=== PATIENT | female | born 1985 | race Caucasian/White ===

== ENCOUNTER 2018-12-11 11:15 | Emergency (ER) | payer OTHER, SELFPAY ==
[2018-12-11 11:15] VITALS: BP 106/48; PULSE 78; RESP 15; TEMP 36.7; O2SAT 100; BMI 23.6
--- NOTE | 2018-12-11 11:21 | ED.PREGNANCY ---
HPI - <Jenise Waters PA-C - Last Filed: 12/11/18 20:42> General Chief complaint: Vaginal Bleeding Stated complaint: 11 weeks ,bleeding Time Seen by Provider: 12/11/18 11:16 Source: patient Limitations: no limitations History of Present Illness HPI Narrative: This 33-year-old female comes to ED secondary to concern for miscarriage. She is 11 weeks , . She states that had been progressing as expected. She had some minor spotting and cramping on Wednesday which she did not think was abnormal, however she worked last night and this morning a couple of hours ago noted that blood was running down her leg. She states that she is really not having any pelvic cramping or pain at this point, minimal discomfort. She does not have any nausea or vomiting. She has not had any fever, chills, sweats. She denies any urinary symptoms. She denies chest pain, dyspnea, swelling or pain in the extremities. Date of Last Menstrual Period: 10/07/18 Patient : Yes Related Data Home Medications Medication Instructions Recorded Confirmed calcium carb-Ca gluc 500 mg tab PO tab 12/06/18 12/06/18 calcium-magnesium ox-Mg gluc 250 mg tablet cholecalciferol (vitamin D3) 2,000 2,000 unit PO DAILY 12/06/18 12/06/18 unit capsule ferrous sulfate 325 mg (65 mg 325 mg PO DAILY tab 12/06/18 12/06/18 iron) tablet 1 tab PO DAILY 12/06/18 12/06/18 vitamin,calcium,hxaqiwfu-itme-htxhx acid tablet Allergies Allergy/AdvReac Type Severity Reaction Status Date / Time hydrocodone AdvReac Mild Hives Verified 12/06/18 14:36 Review of Systems <Jenise Waters PA-C - Last Filed: 12/11/18 20:42> Review of Systems ROS Unobtainable: All systems reviewed & are unremarkable except as noted in HPI and below PMFSH - <Jenise Waters PA-C - Last Filed: 12/11/18 20:42> Past Medical History Iron deficiency anemia Surgical history: Reports AGENCY DIRECTOR history: Reports No AGENCY DIRECTOR History Date of Last Menstrual Period: 10/07/18 Patient : Yes Family history: Reports no significant family history Exam <Jenise Waters PA-C - Last Filed: 12/11/18 20:42> Narrative Exam Narrative: GENERAL APPEARANCE: Patient sitting comfortably, in no distress. HEENT: PERRL, EOMI, conjunctiva pink NECK: Supple, no masses LUNGS: Clear to auscultation bilaterally. HEART: Rate and rhythm regular, normal S1 and S2, no S3 or S4. ABDOMEN: Soft, nontender, nondistended, bowel sounds present x 4 quadrants, no masses palpable, no CVAT EXTREMITIES: No edema NEUROLOGIC: Alert and oriented with normal speech and coordination Initial Vital Signs Initial Vital Signs: Vital Signs Temperature 98.1 F 12/11/18 11:15 Pulse Rate 78 12/11/18 11:15 Respiratory Rate 15 12/11/18 11:15 Blood Pressure 106/48 L 12/11/18 11:15 Pulse Oximetry 100 12/11/18 11:15 <Lore Granados DO - Last Filed: 12/15/18 07:45> Initial Vital Signs Initial Vital Signs: Vital Signs Temperature 98.1 F 12/11/18 11:15 Pulse Rate 78 12/11/18 11:15 Respiratory Rate 15 12/11/18 11:15 Blood Pressure 106/48 L 12/11/18 11:15 Pulse Oximetry 100 12/11/18 11:15 Course <HANK Esteves Last Filed: 12/11/18 20:42> Additional Information: I spoke with Dr. Roman, conservation of resources commissioner for AGENCY DIRECTOR, and reviewed lab and ultrasound findings. She advised that patient can follow up as outpatient if she does not desire D&C. Patient elects to let miscarriage continue to proceed naturally and will call office 1st thing in the morning to schedule follow-up. She agrees return term if any acutely worsening symptoms Orders Ordered: ED Orders 12/11/18 11:40 US OB <= 14 weeks fetus Stat 12/11/18 11:55 ABO RH Type Stat Complete Blood Count AUTO DIFF Stat Comprehensive Metabolic Panel Stat HCG Quantitative Stat Vital Signs - 8 hr 12/11/18 13:33 Pulse Rate 81 Respiratory Rate 15 Blood Pressure 112/75 Pulse Oximetry 100 <Lore Granados DO - Last Filed: 12/15/18 07:45> Orders Ordered: ED Orders 12/11/18 11:40 US OB <= 14 weeks fetus Stat 12/11/18 11:55 ABO RH Type Stat Complete Blood Count AUTO DIFF Stat Comprehensive Metabolic Panel Stat HCG Quantitative Stat Vital Signs - 8 hr 12/11/18 13:33 Pulse Rate 81 Respiratory Rate 15 Blood Pressure 112/75 Pulse Oximetry 100 MDM - OB/Uterine Contractions <Jenise Waters PA-C - Last Filed: 12/11/18 20:42> Lab Data Attestation: I reviewed the patient's lab results. Result diagrams: 12/11/18 11:55 12/11/18 11:55 Lab Results 12/11/18 12/11/18 12/11/18 Range/Units 11:55 11:55 11:55 WBC 7.2 (4.5-11.0) X10^3/uL RBC 4.21 (4.0-5.2) X10^6/uL Hgb 12.5 (12.0-16.0) g/dL Hct 36.6 (36-46) % MCV 86.8 (80-100) fL MCH 29.8 (26-34) PG MCHC 34.3 (30-36) % RDW 14.1 (11.6-14.8) % Plt Count 226 (150-400) X10^3/uL Neut % (Auto) 71.9 (50-75) % Lymph % (Auto) 21.3 L (25-40) % [place] % (Auto) 4.8 (3-14) % Eos % (Auto) 1.3 L (2-4) % Baso % (Auto) 0.7 (0-2) % Neut # (Auto) 5200 (7342-6380) /uL Lymph # (Auto) 1500 (6968-4683) /uL [place] # (Auto) 300 (0-900) /uL Eos # (Auto) 100 (0-450) /uL Baso # (Auto) 0 (0-100) /uL Sodium 137 (137-145) mmol/L Potassium 3.8 (3.4-5.1) mmol/L Chloride 103 (98-107) mmol/L Carbon Dioxide 24 (22-32) mmol/L BUN 9 (7-17) mg/dL Creatinine 0.40 L (0.52-1.04) mg/dL Estimated GFR > 60.0 (>60) mL/min BUN/Creatinine Ratio 22.5 H (6-22) Glucose 96 (70-100) mg/dL Calcium 9.4 (8.4-10.2) mg/dL Total Bilirubin 0.4 (0.2-1.3) mg/dL AST 18 (14-36) IU/L ALT 11 (9-52) IU/L Alkaline Phosphatase 70 (38-126) U/L Total Protein 7.9 (6.3-8.2) g/dL Albumin 4.4 (3.5-5.0) g/dL Globulin 3.5 (1.7-4.1) g/dL Albumin/Globulin Ratio 1.3 (1.0-2.8) HCG, Quant 07578 mIU/mL Blood Type 12/11/18 Range/Units 11:55 WBC (4.5-11.0) X10^3/uL RBC (4.0-5.2) X10^6/uL Hgb (12.0-16.0) g/dL Hct (36-46) % MCV (80-100) fL MCH (26-34) PG MCHC (30-36) % RDW (11.6-14.8) % Plt Count (150-400) X10^3/uL Neut % (Auto) (50-75) % Lymph % (Auto) (25-40) % [place] % (Auto) (3-14) % Eos % (Auto) (2-4) % Baso % (Auto) (0-2) % Neut # (Auto) (0581-9756) /uL Lymph # (Auto) (0337-5882) /uL [place] # (Auto) (0-900) /uL Eos # (Auto) (0-450) /uL Baso # (Auto) (0-100) /uL Sodium (137-145) mmol/L Potassium (3.4-5.1) mmol/L Chloride (98-107) mmol/L Carbon Dioxide (22-32) mmol/L BUN (7-17) mg/dL Creatinine (0.52-1.04) mg/dL Estimated GFR (>60) mL/min BUN/Creatinine Ratio (6-22) Glucose (70-100) mg/dL Calcium (8.4-10.2) mg/dL Total Bilirubin (0.2-1.3) mg/dL AST (14-36) IU/L ALT (9-52) IU/L Alkaline Phosphatase (38-126) U/L Total Protein (6.3-8.2) g/dL Albumin (3.5-5.0) g/dL Globulin (1.7-4.1) g/dL Albumin/Globulin Ratio (1.0-2.8) HCG, Quant mIU/mL Blood Type O Positive Urine Dip Bedside Urine Glucose Negative Bedside Urine Bilirubin - Negative Bedside Urine Ketone - Negative Urine Specific [place] 1.025 Bedside Urine Occult Blood +++ Bedside Urine pH 6.5 Bedside Urine Protein - Negative Bedside Urine Urobilinogen - Negative Bedside Urine Nitrite - Negative Bedside Urine Leukocytes - Negative Esterase Imaging Data US: Radiologist's impression: [place] [address] Ultrasound Report Signed Patient: Desire Padgett VMR#: [id number] : 1985Acct:[id number] Age/Sex: 33 / FDate of Service: 12/11/18 Loc: ED Accession Number: [id number] Procedure: US OB <= 14 weeks fetus Ordering Provider: Jenise Waters P.A-C PROCEDURE: US OB <= 14 WEEKS FETUS INDICATIONS: 11 WEEKS, BLEEDING TECHNIQUE: Real-time scanning was performed of the fetuses and maternal pelvic organs, with image documentation. Endovaginal scanning: Performed for better visualization of the fetus and maternal adnexal structures. COMPARISON: None. FINDINGS: The uterus measures 9.2 x 5.9 x 5.8 cm. An irregularly shaped fluid collection within the endometrial canal is present, corresponding to a 6 week 3 day gestation. No pole. No cardiac activity. Maternal ovaries are within normal limits. No free fluid. Kidneys are within normal limits. IMPRESSION: Findings suggestive of spontaneous . No living intrauterine gestation. Dictated by: Grant Navarrete M.D. on 12/11/2018 at 11:38 Approved by: Grant Navarrete M.D. on 12/11/2018 at 11:40 <Lore Granados DO - Last Filed: 12/15/18 07:45> Lab Data Lab Results 06/16/19 06/16/19 06/16/19 Range/Units 11:55 11:55 11:55 WBC 7.2 (4.5-11.0) X10^3/uL RBC 4.21 (4.0-5.2) X10^6/uL Hgb 12.5 (12.0-16.0) g/dL Hct 36.6 (36-46) % MCV 86.8 (80-100) fL MCH 29.8 (26-34) PG MCHC 34.3 (30-36) % RDW 14.1 (11.6-14.8) % Plt Count 226 (150-400) X10^3/uL Neut % (Auto) 71.9 (50-75) % Lymph % (Auto) 21.3 L (25-40) % [place] % (Auto) 4.8 (3-14) % Eos % (Auto) 1.3 L (2-4) % Baso % (Auto) 0.7 (0-2) % Neut # (Auto) 5200 (1683-4843) /uL Lymph # (Auto) 1500 (1558-8740) /uL [place] # (Auto) 300 (0-900) /uL Eos # (Auto) 100 (0-450) /uL Baso # (Auto) 0 (0-100) /uL Sodium 137 (137-145) mmol/L Potassium 3.8 (3.4-5.1) mmol/L Chloride 103 (98-107) mmol/L Carbon Dioxide 24 (22-32) mmol/L BUN 9 (7-17) mg/dL Creatinine 0.40 L (0.52-1.04) mg/dL Estimated GFR > 60.0 (>60) mL/min BUN/Creatinine Ratio 22.5 H (6-22) Glucose 96 (70-100) mg/dL Calcium 9.4 (8.4-10.2) mg/dL Total Bilirubin 0.4 (0.2-1.3) mg/dL AST 18 (14-36) IU/L ALT 11 (9-52) IU/L Alkaline Phosphatase 70 (38-126) U/L Total Protein 7.9 (6.3-8.2) g/dL Albumin 4.4 (3.5-5.0) g/dL Globulin 3.5 (1.7-4.1) g/dL Albumin/Globulin Ratio 1.3 (1.0-2.8) HCG, Quant 81614 mIU/mL Blood Type 12/11/18 Range/Units 11:55 WBC (4.5-11.0) X10^3/uL RBC (4.0-5.2) X10^6/uL Hgb (12.0-16.0) g/dL Hct (36-46) % MCV (80-100) fL MCH (26-34) PG MCHC (30-36) % RDW (11.6-14.8) % Plt Count (150-400) X10^3/uL Neut % (Auto) (50-75) % Lymph % (Auto) (25-40) % [place] % (Auto) (3-14) % Eos % (Auto) (2-4) % Baso % (Auto) (0-2) % Neut # (Auto) (8690-9563) /uL Lymph # (Auto) (7175-5974) /uL [place]ance # (Auto) (0-900) /uL Eos # (Auto) (0-450) /uL Baso # (Auto) (0-100) /uL Sodium (137-145) mmol/L Potassium (3.4-5.1) mmol/L Chloride (98-107) mmol/L Carbon Dioxide (22-32) mmol/L BUN (7-17) mg/dL Creatinine (0.52-1.04) mg/dL Estimated GFR (>60) mL/min BUN/Creatinine Ratio (6-22) Glucose (70-100) mg/dL Calcium (8.4-10.2) mg/dL Total Bilirubin (0.2-1.3) mg/dL AST (14-36) IU/L ALT (9-52) IU/L Alkaline Phosphatase (38-126) U/L Total Protein (6.3-8.2) g/dL Albumin (3.5-5.0) g/dL Globulin (1.7-4.1) g/dL Albumin/Globulin Ratio (1.0-2.8) HCG, Quant mIU/mL Blood Type O Positive Urine Dip Bedside Urine Glucose Negative Bedside Urine Bilirubin - Negative Bedside Urine Ketone - Negative Urine Specific [place] 1.025 Bedside Urine Occult Blood +++ Bedside Urine pH 6.5 Bedside Urine Protein - Negative Bedside Urine Urobilinogen - Negative Bedside Urine Nitrite - Negative Bedside Urine Leukocytes - Negative Esterase Discharge Plan Departure Patient Disposition: Home Clinical Impression: Incomplete Discharge Date/Time: 12/11/18 13:37 Interventions: ED Discharge Assessment Last Done: 12/11/18 13:33 Instructions: DI for Miscarriage Activity Restrictions/Additional Instructions: Please return if you start to have new symptoms such as severe pain, fever, or very heavy bleeding or feeling weak or faint. Often, the tissue will pass on its own and no procedures are needed, however you do need obstetrics follow-up to confirm this. I have spoken with Dr. Roman who was conservation of resources commissioner today for Dr. Lainez, and she said you can just call the clinic tomorrow and let them know you were seen here and that she said you need to be seen there for follow-up in the next few days. Prescriptions: No Action ferrous sulfate [Feosol] 325 mg (65 mg iron) tablet 325 mg PO DAILY RF: 0 prenat.vits,earnestine,zeg-evho-cfafj tablet 1 tab PO DAILY RF: 0 cholecalciferol (vitamin D3) 2,000 unit capsule 2,000 unit PO DAILY RF: 0 Ca carb-Ca gluc-Mg ox-Mg gluco 500 mg calcium -250 mg tablet PO RF: 0 Referrals: Charleen Lainez MD [Family Provider] - <Lore Granados DO - Last Filed: 12/15/18 07:45> Cosign ED Attending Cosignature Attestation: I was immediately available in the department for consultation, case discussed. Recommended discussion with paving bed maker and short term follow up. Labs, RH positive. No rhogam required. US reviewed. This documentation has been reviewed and I agree with assessment and plan. Supervised by Lore Granados DO
--- NOTE | 2018-12-11 11:38 | ED_ITS ---
HPI - <Jenise Waters PA-C - Last Filed: 12/11/18 20:42> General Chief complaint: Vaginal Bleeding Stated complaint: 11 weeks ,bleeding Time Seen by Provider: 12/11/18 11:16 Source: patient Limitations: no limitations History of Present Illness HPI Narrative: This 33-year-old female comes to ED secondary to concern for miscarriage. She is 11 weeks , . She states that had been progressing as expected. She had some minor spotting and cramping on Wednesday which she did not think was abnormal, however she worked last night and this morning a couple of hours ago noted that blood was running down her leg. She states that she is really not having any pelvic cramping or pain at this point, minimal discomfort. She does not have any nausea or vomiting. She has not had any fever, chills, sweats. She denies any urinary symptoms. She denies chest pain, dyspnea, swelling or pain in the extremities. Date of Last Menstrual Period: 10/07/18 Patient : Yes Related Data Home Medications Medication Instructions Recorded Confirmed calcium carb-Ca gluc 500 mg tab PO tab 12/06/18 12/06/18 calcium-magnesium ox-Mg gluc 250 mg tablet cholecalciferol (vitamin D3) 2,000 2,000 unit PO DAILY 12/06/18 12/06/18 unit capsule ferrous sulfate 325 mg (65 mg 325 mg PO DAILY tab 12/06/18 12/06/18 iron) tablet 1 tab PO DAILY 12/06/18 12/06/18 vitamin,calcium,mhpfvtbj-elro-ouany acid tablet Allergies Allergy/AdvReac Type Severity Reaction Status Date / Time hydrocodone AdvReac Mild Hives Verified 12/06/18 14:36 Review of Systems <Jenise Waters PA-C - Last Filed: 12/11/18 20:42> Review of Systems ROS Unobtainable: All systems reviewed & are unremarkable except as noted in HPI and below PMFSH - <Jenise Waters PA-C - Last Filed: 12/11/18 20:42> Past Medical History Iron deficiency anemia Surgical history: Reports CANVAS BASTER history: Reports No CANVAS BASTER History Date of Last Menstrual Period: 10/07/18 Patient : Yes Family history: Reports no significant family history Exam <Jenise Waters PA-C - Last Filed: 12/11/18 20:42> Narrative Exam Narrative: GENERAL APPEARANCE: Patient sitting comfortably, in no distress. HEENT: PERRL, EOMI, conjunctiva pink NECK: Supple, no masses LUNGS: Clear to auscultation bilaterally. HEART: Rate and rhythm regular, normal S1 and S2, no S3 or S4. ABDOMEN: Soft, nontender, nondistended, bowel sounds present x 4 quadrants, no masses palpable, no CVAT EXTREMITIES: No edema NEUROLOGIC: Alert and oriented with normal speech and coordination Initial Vital Signs Initial Vital Signs: Vital Signs Temperature 98.1 F 12/11/18 11:15 Pulse Rate 78 12/11/18 11:15 Respiratory Rate 15 12/11/18 11:15 Blood Pressure 106/48 L 12/11/18 11:15 Pulse Oximetry 100 12/11/18 11:15 <Lore Granados DO - Last Filed: 12/15/18 07:45> Initial Vital Signs Initial Vital Signs: Vital Signs Temperature 98.1 F 12/11/18 11:15 Pulse Rate 78 12/11/18 11:15 Respiratory Rate 15 12/11/18 11:15 Blood Pressure 106/48 L 12/11/18 11:15 Pulse Oximetry 100 12/11/18 11:15 Course <HANK Esteves Last Filed: 12/11/18 20:42> Additional Information: I spoke with Dr. Roman, network consultant for CANVAS BASTER, and reviewed lab and ultrasound findings. She advised that patient can follow up as outpatient if she does not desire D&C. Patient elects to let miscarriage continue to proceed naturally and will call office 1st thing in the morning to schedule follow-up. She agrees return term if any acutely worsening symptoms Orders Ordered: ED Orders 12/11/18 11:40 US OB <= 14 weeks fetus Stat 12/11/18 11:55 ABO RH Type Stat Complete Blood Count AUTO DIFF Stat Comprehensive Metabolic Panel Stat HCG Quantitative Stat Vital Signs - 8 hr 12/11/18 13:33 Pulse Rate 81 Respiratory Rate 15 Blood Pressure 112/75 Pulse Oximetry 100 <Lore Granados DO - Last Filed: 12/15/18 07:45> Orders Ordered: ED Orders 12/11/18 11:40 US OB <= 14 weeks fetus Stat 12/11/18 11:55 ABO RH Type Stat Complete Blood Count AUTO DIFF Stat Comprehensive Metabolic Panel Stat HCG Quantitative Stat Vital Signs - 8 hr 12/11/18 13:33 Pulse Rate 81 Respiratory Rate 15 Blood Pressure 112/75 Pulse Oximetry 100 MDM - OB/Uterine Contractions <Jenise Waters PA-C - Last Filed: 12/11/18 20:42> Lab Data Attestation: I reviewed the patient's lab results. Result diagrams: 12/11/18 11:55 12/11/18 11:55 Lab Results 12/11/18 12/11/18 12/11/18 Range/Units 11:55 11:55 11:55 WBC 7.2 (4.5-11.0) X10^3/uL RBC 4.21 (4.0-5.2) X10^6/uL Hgb 12.5 (12.0-16.0) g/dL Hct 36.6 (36-46) % MCV 86.8 (80-100) fL MCH 29.8 (26-34) PG MCHC 34.3 (30-36) % RDW 14.1 (11.6-14.8) % Plt Count 226 (150-400) X10^3/uL Neut % (Auto) 71.9 (50-75) % Lymph % (Auto) 21.3 L (25-40) % [place] % (Auto) 4.8 (3-14) % Eos % (Auto) 1.3 L (2-4) % Baso % (Auto) 0.7 (0-2) % Neut # (Auto) 5200 (8179-7318) /uL Lymph # (Auto) 1500 (5609-3038) /uL [place] # (Auto) 300 (0-900) /uL Eos # (Auto) 100 (0-450) /uL Baso # (Auto) 0 (0-100) /uL Sodium 137 (137-145) mmol/L Potassium 3.8 (3.4-5.1) mmol/L Chloride 103 (98-107) mmol/L Carbon Dioxide 24 (22-32) mmol/L BUN 9 (7-17) mg/dL Creatinine 0.40 L (0.52-1.04) mg/dL Estimated GFR > 60.0 (>60) mL/min BUN/Creatinine Ratio 22.5 H (6-22) Glucose 96 (70-100) mg/dL Calcium 9.4 (8.4-10.2) mg/dL Total Bilirubin 0.4 (0.2-1.3) mg/dL AST 18 (14-36) IU/L ALT 11 (9-52) IU/L Alkaline Phosphatase 70 (38-126) U/L Total Protein 7.9 (6.3-8.2) g/dL Albumin 4.4 (3.5-5.0) g/dL Globulin 3.5 (1.7-4.1) g/dL Albumin/Globulin Ratio 1.3 (1.0-2.8) HCG, Quant 39150 mIU/mL Blood Type 12/11/18 Range/Units 11:55 WBC (4.5-11.0) X10^3/uL RBC (4.0-5.2) X10^6/uL Hgb (12.0-16.0) g/dL Hct (36-46) % MCV (80-100) fL MCH (26-34) PG MCHC (30-36) % RDW (11.6-14.8) % Plt Count (150-400) X10^3/uL Neut % (Auto) (50-75) % Lymph % (Auto) (25-40) % [place] % (Auto) (3-14) % Eos % (Auto) (2-4) % Baso % (Auto) (0-2) % Neut # (Auto) (5213-8568) /uL Lymph # (Auto) (6334-4104) /uL [place] # (Auto) (0-900) /uL Eos # (Auto) (0-450) /uL Baso # (Auto) (0-100) /uL Sodium (137-145) mmol/L Potassium (3.4-5.1) mmol/L Chloride (98-107) mmol/L Carbon Dioxide (22-32) mmol/L BUN (7-17) mg/dL Creatinine (0.52-1.04) mg/dL Estimated GFR (>60) mL/min BUN/Creatinine Ratio (6-22) Glucose (70-100) mg/dL Calcium (8.4-10.2) mg/dL Total Bilirubin (0.2-1.3) mg/dL AST (14-36) IU/L ALT (9-52) IU/L Alkaline Phosphatase (38-126) U/L Total Protein (6.3-8.2) g/dL Albumin (3.5-5.0) g/dL Globulin (1.7-4.1) g/dL Albumin/Globulin Ratio (1.0-2.8) HCG, Quant mIU/mL Blood Type O Positive Urine Dip Bedside Urine Glucose Negative Bedside Urine Bilirubin - Negative Bedside Urine Ketone - Negative Urine Specific [address] 1.025 Bedside Urine Occult Blood +++ Bedside Urine pH 6.5 Bedside Urine Protein - Negative Bedside Urine Urobilinogen - Negative Bedside Urine Nitrite - Negative Bedside Urine Leukocytes - Negative Esterase Imaging Data US: Radiologist's impression: [place] [address] Ultrasound Report Signed Patient: Desire Padgett VMR#: [id number] : 1985Acct:[id number] Age/Sex: 33 / FDate of Service: 12/11/18 Loc: ED Accession Number: [id number] Procedure: US OB <= 14 weeks fetus Ordering Provider: Jenise Waters P.A-C PROCEDURE: US OB <= 14 WEEKS FETUS INDICATIONS: 11 WEEKS, BLEEDING TECHNIQUE: Real-time scanning was performed of the fetuses and maternal pelvic organs, with image documentation. Endovaginal scanning: Performed for better visualization of the fetus and maternal adnexal structures. COMPARISON: None. FINDINGS: The uterus measures 9.2 x 5.9 x 5.8 cm. An irregularly shaped fluid collection within the endometrial canal is present, corresponding to a 6 week 3 day gestation. No pole. No cardiac activity. Maternal ovaries are within normal limits. No free fluid. Kidneys are within normal limits. IMPRESSION: Findings suggestive of spontaneous . No living intrauterine gestation. Dictated by: Grant Navarrete M.D. on 12/11/2018 at 11:38 Approved by: Grant Navarrete M.D. on 12/11/2018 at 11:40 <Lore Granados DO - Last Filed: 12/15/18 07:45> Lab Data Lab Results 06/16/19 06/16/19 06/16/19 Range/Units 11:55 11:55 11:55 WBC 7.2 (4.5-11.0) X10^3/uL RBC 4.21 (4.0-5.2) X10^6/uL Hgb 12.5 (12.0-16.0) g/dL Hct 36.6 (36-46) % MCV 86.8 (80-100) fL MCH 29.8 (26-34) PG MCHC 34.3 (30-36) % RDW 14.1 (11.6-14.8) % Plt Count 226 (150-400) X10^3/uL Neut % (Auto) 71.9 (50-75) % Lymph % (Auto) 21.3 L (25-40) % [place] % (Auto) 4.8 (3-14) % Eos % (Auto) 1.3 L (2-4) % Baso % (Auto) 0.7 (0-2) % Neut # (Auto) 5200 (3036-3454) /uL Lymph # (Auto) 1500 (3978-1492) /uL [place] # (Auto) 300 (0-900) /uL Eos # (Auto) 100 (0-450) /uL Baso # (Auto) 0 (0-100) /uL Sodium 137 (137-145) mmol/L Potassium 3.8 (3.4-5.1) mmol/L Chloride 103 (98-107) mmol/L Carbon Dioxide 24 (22-32) mmol/L BUN 9 (7-17) mg/dL Creatinine 0.40 L (0.52-1.04) mg/dL Estimated GFR > 60.0 (>60) mL/min BUN/Creatinine Ratio 22.5 H (6-22) Glucose 96 (70-100) mg/dL Calcium 9.4 (8.4-10.2) mg/dL Total Bilirubin 0.4 (0.2-1.3) mg/dL AST 18 (14-36) IU/L ALT 11 (9-52) IU/L Alkaline Phosphatase 70 (38-126) U/L Total Protein 7.9 (6.3-8.2) g/dL Albumin 4.4 (3.5-5.0) g/dL Globulin 3.5 (1.7-4.1) g/dL Albumin/Globulin Ratio 1.3 (1.0-2.8) HCG, Quant 22597 mIU/mL Blood Type 12/11/18 Range/Units 11:55 WBC (4.5-11.0) X10^3/uL RBC (4.0-5.2) X10^6/uL Hgb (12.0-16.0) g/dL Hct (36-46) % MCV (80-100) fL MCH (26-34) PG MCHC (30-36) % RDW (11.6-14.8) % Plt Count (150-400) X10^3/uL Neut % (Auto) (50-75) % Lymph % (Auto) (25-40) % [place] % (Auto) (3-14) % Eos % (Auto) (2-4) % Baso % (Auto) (0-2) % Neut # (Auto) (4677-0717) /uL Lymph # (Auto) (3553-7013) /uL [place] # (Auto) (0-900) /uL Eos # (Auto) (0-450) /uL Baso # (Auto) (0-100) /uL Sodium (137-145) mmol/L Potassium (3.4-5.1) mmol/L Chloride (98-107) mmol/L Carbon Dioxide (22-32) mmol/L BUN (7-17) mg/dL Creatinine (0.52-1.04) mg/dL Estimated GFR (>60) mL/min BUN/Creatinine Ratio (6-22) Glucose (70-100) mg/dL Calcium (8.4-10.2) mg/dL Total Bilirubin (0.2-1.3) mg/dL AST (14-36) IU/L ALT (9-52) IU/L Alkaline Phosphatase (38-126) U/L Total Protein (6.3-8.2) g/dL Albumin (3.5-5.0) g/dL Globulin (1.7-4.1) g/dL Albumin/Globulin Ratio (1.0-2.8) HCG, Quant mIU/mL Blood Type O Positive Urine Dip Bedside Urine Glucose Negative Bedside Urine Bilirubin - Negative Bedside Urine Ketone - Negative Urine Specific [address] 1.025 Bedside Urine Occult Blood +++ Bedside Urine pH 6.5 Bedside Urine Protein - Negative Bedside Urine Urobilinogen - Negative Bedside Urine Nitrite - Negative Bedside Urine Leukocytes - Negative Esterase Discharge Plan Departure Patient Disposition: Home Clinical Impression: Incomplete Discharge Date/Time: 12/11/18 13:37 Interventions: ED Discharge Assessment Last Done: 12/11/18 13:33 Instructions: DI for Miscarriage Activity Restrictions/Additional Instructions: Please return if you start to have new symptoms such as severe pain, fever, or very heavy bleeding or feeling weak or faint. Often, the tissue will pass on its own and no procedures are needed, however you do need obstetrics follow-up to confirm this. I have spoken with Dr. Roman who was network consultant today for Dr. Lainez, and she said you can just call the clinic tomorrow and let them know you were seen here and that she said you need to be seen there for follow-up in the next few days. Prescriptions: No Action ferrous sulfate [Feosol] 325 mg (65 mg iron) tablet 325 mg PO DAILY RF: 0 prenat.vits,earnestine,prq-ulbn-qznii tablet 1 tab PO DAILY RF: 0 cholecalciferol (vitamin D3) 2,000 unit capsule 2,000 unit PO DAILY RF: 0 Ca carb-Ca gluc-Mg ox-Mg gluco 500 mg calcium -250 mg tablet PO RF: 0 Referrals: Charleen Lainez MD [Family Provider] - <Lore Granados DO - Last Filed: 12/15/18 07:45> Cosign ED Attending Cosignature Attestation: I was immediately available in the department for consultation, case discussed. Recommended discussion with hydraulic repairer and short term follow up. Labs, RH positive. No rhogam required. US reviewed. This documentation has been reviewed and I agree with assessment and plan. Supervised by Lore Granados DO
[2018-12-11 12:08] LABS: Add Manual Diff / Slide Review NO; Basophils Absolute Auto 0 /uL (0-100); Basophils Percent Auto 0.7 % (0-2); Eosinophils Absolute Auto 100 /uL (0-450); Eosinophils Percent Auto 1.3 % (2-4); Hematocrit 36.6 % (36-46); Hemoglobin 12.5 g/dL (12.0-16.0); Lymphocytes Absolute Auto 1500 /uL (1100-4500); Lymphocytes Percent Auto 21.3 % (25-40); Mean Corpuscular HGB Conc 34.3 % (30-36); Mean Corpuscular Hemoglobin 29.8 PG (26-34); Mean Corpuscular Volume 86.8 fL (80-100); Monocytes Absolute Auto 300 /uL (0-900); Monocytes Percent Auto 4.8 % (3-14); Neutrophils Absolute Auto 5200 /uL (1500-7000); Neutrophils Percent Auto 71.9 % (50-75); Platelet Count 226 X10^3/uL (150-400); Red Blood Cell Count 4.21 X10^6/uL (4.0-5.2); Red Cell Distribution Width 14.1 % (11.6-14.8); White Blood Cell Count 7.2 X10^3/uL (4.5-11.0)
[2018-12-11 12:14] LABS: Alanine Aminotransferase 11 IU/L (9-52); Albumin 4.4 g/dL (3.5-5.0); Albumin Globulin Ratio 1.3 (1.0-2.8); Alkaline Phosphatase 70 U/L (38-126); Aspartate Aminotransferase 18 IU/L (14-36); BUN Creatinine Ratio 22.5 (6-22); Bilirubin Total 0.4 mg/dL (0.2-1.3); Blood Urea Nitrogen 9 mg/dL (7-17); Calcium 9.4 mg/dL (8.4-10.2); Carbon Dioxide 24 mmol/L (22-32); Chloride 103 mmol/L (98-107); Estimated Glomerular Filt Rate > 60.0 mL/min (>60); Globulin 3.5 g/dL (1.7-4.1); Glucose 96 mg/dL (70-100); HEMOLYSIS < 15 (0-50); Potassium 3.8 mmol/L (3.4-5.1); Sodium 137 mmol/L (137-145); Total Protein 7.9 g/dL (6.3-8.2)
[2018-12-11 12:57] LABS: HCG Quantitative /Beta subunit 29232 mIU/mL
[2018-12-11 13:33] VITALS: BP 112/75; PULSE 81; RESP 15; O2SAT 100
== END 2018-12-11 13:37 | disposition home or self-care (01) ==
PROVIDERS: Emergency Provider Internal Medicine; Family Provider Obstetrics & Gynecology
DX: O03.4 Incomplete spontaneous abortion without complication (principal); Z3A.11 11 weeks gestation of pregnancy
CPT/HCPCS: 36415; 76801; 76817; 80053; 81003; 84702; 85025; 86900; 86901; 99282; 99284

== ENCOUNTER 2020-02-10 21:31 | Emergency (ER) | payer OTHER, SELFPAY ==
--- NOTE | 2020-02-10 21:59 | ED_ITS ---
HPI - Female Genitourinary General Chief complaint: Urogenital-Female Stated complaint: Bladder pain, blood in urine Time Seen by Provider: 02/10/20 21:35 Source: patient Mode of arrival: Ambulatory Limitations: no limitations History of Present Illness HPI Narrative: 35-year-old female nonsmoker with noncontributory medical history presents with a chief complaint of some pelvic cramping and discomfort the past few days and blood in her urine. She denies any fever chills but does admit to some dysuria. She works in another emergency department and states she has been dipping her urine and noted blood without signs of infection for the past few days. She denies any vaginal bleeding or discharge. She denies any provocation, palliation or radiation of her discomfort. She denies any history of the same. She is concerned that she may have a cancerous lesion of her bladder (some unknown sarcoma) like her sister had. MD Complaint: dysuria Onset (ago): day(s) Location: suprapubic Severity: mild Quality: Aching Duration: intermittent Exacerbating factors: movement Urinary symptoms: Dysuria and Hematuria Patient : No Associated symptoms: denies other symptoms Related Data Home Medications Medication Instructions Recorded Confirmed calcium carb-Ca gluc 500 mg tab PO tab 12/06/18 12/19/18 calcium-magnesium ox-Mg gluc 250 mg tablet cholecalciferol (vitamin D3) 50 2,000 unit PO DAILY 12/06/18 12/19/18 mcg (2,000 unit) capsule ferrous sulfate 325 mg (65 mg 325 mg PO DAILY tab 12/06/18 12/19/18 iron) tablet prenat.vits,earnestine,[id number]-[id number]-[id number] 1 tab PO DAILY 12/06/18 12/19/18 Allergies Allergy/AdvReac Type Severity Reaction Status Date / Time hydrocodone AdvReac Mild Hives Verified 12/06/18 14:36 Review of Systems Constitutional Constitutional: Denies chills, Denies fatigue, Denies fever(s), Denies frequent falls, Denies lethargy and Denies weakness Eyes Eyes: Denies change in vision, Denies eye discharge, Denies irritation and Denies loss of vision ENT Ears, Nose, Mouth, and Throat: Denies change in voice, Denies dizziness, Denies neck pain, Denies sore throat and Denies throat swelling Cardiovascular Cardiovascular: Denies chest pain, Denies irregular heart rhythm, Denies lightheadedness, Denies palpitations, Denies dyspnea, Denies dyspnea on exertion and Denies orthopnea Respiratory Respiratory: Denies cough, Denies dyspnea, Denies dyspnea on exertion and Denies wheezing Gastrointestinal Gastrointestinal: Denies abdominal pain, Denies change in bowel habits, Denies diarrhea, Denies nausea and Denies vomiting Genitourinary Genitourinary: Reports difficulty voiding Musculoskeletal Musculoskeletal: Denies neck pain and Denies numbness Integumentary/Breasts Skin/Breast: Denies pruritus, Denies erythema, Denies rash and Denies wounds Neurologic Neurologic: Denies behavioral changes, Denies confusion, Denies dizziness, Denies frequent falls, Denies loss of vision, Denies numbness and Denies weakness Psychiatric Psychiatric: Denies anxiety, Denies behavioral changes, Denies confusion, Denies depression, Denies homicidal ideation and Denies suicidal ideation Endocrine Endocrine: Denies fatigue, Denies flushing and Denies palpitations Hematologic/Lymphatic Hematologic/Lymphatic: Denies easy bruising Allergic/Immunologic Allergic/Immunologic: Denies urticaria, Denies throat swelling and Denies wheezing Patient History Substance Use Type: does not use Exam Narrative Exam Narrative: GENERAL: [35] year old patient appears stated age. Well- nourished, well-developed patient, in mild distress. HEAD: Atraumatic. Normocephalic. EYES: Pupils equal round and reactive. Extraocular motions intact. No scleral icterus. No injection or drainage. ENT: Nose without bleeding, purulent drainage. Throat without erythema, tonsillar hypertrophy or exudate. Airway patent. NECK: Trachea midline. Non tender CARDIOVASCULAR: Regular rate and rhythm without murmurs, gallops, or rubs. RESPIRATORY: Clear to auscultation. Breath sounds equal bilaterally. No wheezes, rales, or rhonchi. GASTROINTESTINAL: Abdomen soft, mild suprapubic tenderness, nondistended. EXTREMITIES: No edema or joint tenderness. BACK: Nontender without deformity or crepitance. No flank tenderness. NEURO: AOx3. SKIN: No rash or erythema of visible areas Initial Vital Signs Initial Vital Signs: Vital Signs Temperature 98.7 F 02/10/20 22:05 Pulse Rate 87 02/10/20 22:05 Respiratory Rate 18 02/10/20 22:05 Blood Pressure 118/77 02/10/20 22:05 Pulse Oximetry 100 02/10/20 22:05 Course Orders Ordered: ED Orders 02/10/20 23:00 Basic Metabolic Panel Stat Complete Blood Count AUTO DIFF Stat MDM - Female Genitourinary Lab Data Result diagrams: 02/10/20 23:00 02/10/20 23:00 Labs: Lab Results 02/10/20 02/10/20 02/10/20 Range/Units 22:25 23:00 23:00 WBC 5.5 (4.5-11.0) X10^3/uL RBC 4.21 (4.0-5.2) X10^6/uL Hgb 12.0 (12.0-16.0) g/dL Hct 35.9 L (36-46) % MCV 85.3 (80-100) fL MCH 28.4 (26-34) PG MCHC 33.3 (30-36) % RDW 13.8 (11.6-14.8) % Plt Count 208 (150-400) X10^3/uL Neut % (Auto) 60.2 (50-75) % Lymph % (Auto) 29.3 (25-40) % Adams % (Auto) 7.8 (3-14) % Eos % (Auto) 1.5 L (2-4) % Baso % (Auto) 1.2 (0-2) % Neut # (Auto) 3300 (8795-1586) /uL Lymph # (Auto) 1600 (7426-4488) /uL Adams # (Auto) 400 (0-900) /uL Eos # (Auto) 100 (0-450) /uL Baso # (Auto) 100 (0-100) /uL Sodium 136 L (137-145) mmol/L Potassium 4.0 (3.4-5.1) mmol/L Chloride 102 (98-107) mmol/L Carbon Dioxide 26 (22-32) mmol/L BUN 11 (7-17) mg/dL Creatinine 0.53 (0.52-1.04) mg/dL Estimated GFR > 60.0 (>60) mL/min BUN/Creatinine Ratio 20.8 (6-22) Glucose 96 (70-100) mg/dL Calcium 9.4 (8.4-10.2) mg/dL Urine RBC 1-5/hpf (0-5/HPF) Urine WBC None seen (0-5/HPF) Urine Bacteria None seen (None) Ur Culture Indicated? Cult not indicated Point of Care Testing Test Results Negative Urine Dip Bedside Urine Glucose Negative Bedside Urine Bilirubin - Negative Bedside Urine Ketone - Negative Urine Specific [place] 1.020 Bedside Urine Occult Blood ++ Bedside Urine pH 6.0 Bedside Urine Protein +/- 15 Bedside Urine Urobilinogen +/- 1mg Bedside Urine Nitrite - Negative Bedside Urine Leukocytes - Negative Esterase Imaging Data CT scan - abdomen/pelvis: Radiologist's Impression: Cholelithiasis (known to the patient), no free intraperitoneal air or fluid. No inflammatory out obstructive changes involving bowel or genital urinary tract. No nephrolithiasis. Cystic change in left ovary, no free pelvic fluid. MDM Narrative Medical decision making narrative: Multiple etiologies for patient's symptoms considered including: [UTI vs. IC vs. kidney stone vs. other] Patient's symptoms improved over duration of stay with above-stated therapies. Findings and discharge diagnosis discussed with patient/family followed by verb alization of understanding Return precautions discussed with patient/family whom verbalize understanding. Discharge Plan Departure Patient Disposition: Home Clinical Impression: Pelvic pain Hematuria Qualifiers: Hematuria type: unspecified type Qualified Code(s): R31.9 - Hematuria, unspecified Discharge Date/Time: 02/11/20 00:25 Instructions: DI for Hematuria Activity Restrictions/Additional Instructions: *You have been diagnosed with [pelvic discomfort and hematuria] *What to do: *Take medications as directed *Follow up with your primary care provider in 2-3 days, call for an appointment. Let them know you were seen in the Emergency Department and that we ask that you be seen in follow up *Return to ER if you should have any new, worsening or concerning symptoms Prescriptions: No Action ferrous sulfate [Feosol] 325 mg (65 mg iron) tablet 325 mg PO DAILY RF: 0 prenat.vits,earnestine,eiu-ypag-joeuw tablet 1 tab PO DAILY RF: 0 cholecalciferol (vitamin D3) 2,000 unit capsule 2,000 unit PO DAILY RF: 0 Ca carb-Ca gluc-Mg ox-Mg gluco 500 mg calcium -250 mg tablet PO RF: 0 Referrals: Amilcar Olivas MD [Physician] - Stand Alone Forms: Work Release Note
[2020-02-10 22:05] VITALS: BP 118/77; PULSE 87; RESP 18; TEMP 37.1; O2SAT 100; BMI 24.7
--- NOTE | 2020-02-10 22:33 | DI.CT.S_ITS ---
PROCEDURE: CT KIDNEY URETER BLADDER (KUB) INDICATIONS: pelvic pain, hematuria TECHNIQUE: Noncontrast 5 mm thick sections acquired from the diaphragms to the symphysis. 5 mm thick coronal and sagittal reformats were then performed. For radiation dose reduction, the following was used: automated exposure control, adjustment of mA and/or kV according to patient size. COMPARISON: [facility], , OB <= 14 WEEKS FETUS, 12/11/2018, 11:59. FINDINGS: Image quality: Excellent. Lung bases: Lung bases are clear. Heart size is normal. Urinary system: Both kidneys are normal in size. No kidney stones. No hydronephrosis or perinephric fat stranding. Both ureters appear non-dilated throughout their expected courses. Bladder wall thickness is normal; no calcified bladder stones. Other solid organs: Liver is normal in size. Gallbladder demonstrates a gallstone within its lumen. Pancreas is normal in contours. Spleen is normal in size. No adrenal nodules. Peritoneum and bowel: Unenhanced bowel loops demonstrate normal wall thickness and caliber. No free fluid or air. Nodes and vessels: No retroperitoneal or mesenteric adenopathy by size criteria. Aorta and inferior vena cava are normal in caliber. Abdominal wall: A mild periumbilical hernia is seen, containing fat. Pelvis: No free pelvic fluid. No inguinal hernias or adenopathy. The uterus appears normal for age. No adnexal masses are seen. There is a 2 cm cyst involving the left ovary, which is considered to be within physiologic limits. Bones: No suspicious bony lesions. No vertebral body compression fractures. Mild levoconvex scoliotic curvature is noted. IMPRESSION: No stones or hydronephrosis can be seen. Incidental note is made of: Gallstone Fat containing periumbilical hernia Note: No significant discrepancy from the preliminary report. Dictated by: Dino Johnson M.D. on 02/11/2020 at 9:13 Approved by: Dino Johnson M.D. on 02/11/2020 at 9:15
[2020-02-10 22:37] LABS: Bacteria Urine None Seen; WBC Urine None Seen (0-5/HPF)
[2020-02-10 22:45] LABS: Culture Indicated Urine Cult Not Indicated; RBC Urine 1-5/HPF (0-5/HPF)
[2020-02-10 23:11] LABS: Add Manual Diff / Slide Review NO; Basophils Absolute Auto 100 /uL (0-100); Basophils Percent Auto 1.2 % (0-2); Eosinophils Absolute Auto 100 /uL (0-450); Eosinophils Percent Auto 1.5 % (2-4); Hematocrit 35.9 % (36-46); Lymphocytes Absolute Auto 1600 /uL (1100-4500); Lymphocytes Percent Auto 29.3 % (25-40); Mean Corpuscular HGB Conc 33.3 % (30-36); Mean Corpuscular Hemoglobin 28.4 PG (26-34); Mean Corpuscular Volume 85.3 fL (80-100); Monocytes Absolute Auto 400 /uL (0-900); Monocytes Percent Auto 7.8 % (3-14); Neutrophils Absolute Auto 3300 /uL (1500-7000); Neutrophils Percent Auto 60.2 % (50-75); Platelet Count 208 X10^3/uL (150-400); Red Blood Cell Count 4.21 X10^6/uL (4.0-5.2); Red Cell Distribution Width 13.8 % (11.6-14.8); White Blood Cell Count 5.5 X10^3/uL (4.5-11.0)
[2020-02-10 23:20] LABS: BUN Creatinine Ratio 20.8 (6-22); Blood Urea Nitrogen 11 mg/dL (7-17); Calcium 9.4 mg/dL (8.4-10.2); Carbon Dioxide 26 mmol/L (22-32); Chloride 102 mmol/L (98-107); Estimated Glomerular Filt Rate > 60.0 mL/min (>60); Glucose 96 mg/dL (70-100); HEMOLYSIS < 15 (0-50); Sodium 136 mmol/L (137-145)
== END 2020-02-11 00:25 | disposition home or self-care (01) ==
PROVIDERS: Emergency Provider Emergency Medicine; Family Provider Obstetrics & Gynecology
DX: R10.2 Pelvic and perineal pain (principal); R31.9 Hematuria, unspecified; R30.0 Dysuria
CPT/HCPCS: 36415; 74176; 80048; 81003; 81015; 81025; 85025; 99283; 99284